=== PATIENT | female | born 1960 | race Caucasian/White ===

== ENCOUNTER 2016-04-24 11:29 | Inpatient (IN) | payer OTHER ==
[~2016-04-24] VITALS: Ht 154.9 cm; Wt 77.3 kg
[2016-04-24 12:07] LABS: EOSINOPHIL (%) 0 % (0-5); HEMATOCRIT 43.8 % (36.0-46.0); IMMATURE GRANULOCYTE (%) 0.1 % (0.0-0.7); IMMATURE GRANULOCYTE COUNT 0.1 K/uL; LYMPHOCYTE COUNT 0.5 K/uL (1.0-2.8); MCH 29.6 PG (29.0-34.0); MCHC 34.2 G/DL (30.0-36.0); MCV 86.4 FL (83-99); MEAN PLAT.VOLUME 10.5 uM^3 (9.5-12.4); MONOCYTE (%) 2.9 % (3-12); MONOCYTE COUNT 0.2 K/uL (0-0.8); NEUTROPHIL COUNT 7.3 K/uL (1.8-6.4); PLATELET COUNT 297 K/uL (156-360); RBC DIS.WIDTH-CV 12.7 % (11.8-14.6); RBC DIS.WIDTH-SD 39.5 % (39-53); RED BLOOD COUNT 5.07 M/uL (3.80-5.20)
[2016-04-24] MEDS ORDERED: WELLBUTRIN XL300 MG PO (12:11)
[2016-04-24] MEDS ORDERED: GABAPENTIN300 MG PO (12:15)
[2016-04-24] MEDS ORDERED: LEVO-T112 MCG PO (12:17)
[2016-04-24 12:18] LABS: CHLORIDE 107 mEq/L (99-109); POTASSIUM 4.5 mEq/L (3.7-5.4); SODIUM 143 mEq/L (136-147)
[2016-04-24] MEDS ORDERED: LATANOPROST2.5 ML BOTH EYES (12:18)
[2016-04-24 12:21] LABS: GLUCOSE 158 mg/dL (70-99)
[2016-04-24] MEDS ORDERED: MELATONIN10 M4 SL (12:21)
[2016-04-24 12:22] LABS: ANION GAP 14 MEQ/L (2-14)
[2016-04-24 12:23] LABS: TOTAL BILIRUBIN 0.3 mg/dL (0.0-1.0)
[2016-04-24 12:24] LABS: ALKALINE PHOSPHATASE 61 IU/L (3-129); GFR ESTIMATE (CALCULATED) > 59 mL/min/
[2016-04-24 12:25] LABS: UREA NITROGEN (BUN) 20 mg/dL (9-23)
[2016-04-24 12:28] LABS: LIPASE 18 U/L (1.0-51.0)
[2016-04-24] MEDS ORDERED: SYNTHROID112 MCG PO (15:53)
[2016-04-24] MEDS ORDERED: SENNA8.6 MG PO (15:54)
[2016-04-24] MEDS ORDERED: VICODIN 5-3001 EACH PO (15:55)
[2016-04-24 20:25] VITALS: BP 133/74
[2016-04-24 23:54] VITALS: BP 121/57
[2016-04-25 04:09] VITALS: BP 124/59
[2016-04-25 08:15] VITALS: BP 99/58
[2016-04-25 11:51] VITALS: BP 111/60
[2016-04-25 15:54] VITALS: BP 110/59
[2016-04-25 20:02] VITALS: BP 136/63
[2016-04-25 23:54] VITALS: BP 109/58
[2016-04-26 03:47] VITALS: BP 132/63
[2016-04-26 07:02] LABS: ALKALINE PHOSPHATASE 33 IU/L (3-129); ANION GAP 6 MEQ/L (2-14); CHLORIDE 105 MEQ/L (99-109); GFR ESTIMATE (CALCULATED) > 59 mL/min/; POTASSIUM 3.6 MEQ/L (3.7-5.4); SAMPLE HEMOLYSIS CHECK 0; SAMPLE ICTERIC CHECK 0; SAMPLE LIPEMIA CHECK 0; SODIUM 141 MEQ/L (136-147); TOTAL BILIRUBIN 0.5 MG/DL (0.0-1.0); UREA NITROGEN (BUN) 16 mg/dL (9-23)
[2016-04-26 07:05] LABS: GLUCOSE 96 mg/dL (70-99)
[2016-04-26 08:36] VITALS: BP 118/53
[2016-04-26 12:03] VITALS: BP 124/59
[2016-04-26 16:32] VITALS: BP 111/64
[2016-04-26 19:17] VITALS: BP 113/57
[2016-04-26 23:32] VITALS: BP 101/50
[2016-04-27 03:41] VITALS: BP 108/58
[2016-04-27 06:04] LABS: ALKALINE PHOSPHATASE 40 IU/L (3-129); ANION GAP 9 MEQ/L (2-14); CHLORIDE 105 MEQ/L (99-109); GFR ESTIMATE (CALCULATED) > 59 mL/min/; GLUCOSE 75 mg/dL (70-99); POTASSIUM 3.8 MEQ/L (3.7-5.4); SAMPLE HEMOLYSIS CHECK 2; SAMPLE ICTERIC CHECK 0; SAMPLE LIPEMIA CHECK 0; SODIUM 141 MEQ/L (136-147); TOTAL BILIRUBIN 0.6 MG/DL (0.0-1.0); UREA NITROGEN (BUN) 14 mg/dL (9-23)
[2016-04-27 06:25] LABS: HEMATOCRIT 30.6 % (36.0-46.0); MCH 30.2 PG (29.0-34.0); MCV 91.6 FL (83-99); RBC DIS.WIDTH-CV 13.4 % (11.8-14.6); RED BLOOD COUNT 3.34 M/uL (3.80-5.20); WHITE BLOOD COUNT 7.3 K/uL (4.1-10.2)
[2016-04-27 06:56] LABS: MEAN PLAT.VOLUME 11.2 uM^3 (9.5-12.4)
[2016-04-27 07:02] LABS: PLATELET COUNT 151 K/uL (156-360)
[2016-04-27 08:49] VITALS: BP 126/84
[2016-04-27 11:02] VITALS: BP 133/60
[2016-04-27 16:30] VITALS: BP 144/65
[2016-04-27 19:29] VITALS: BP 153/67
[2016-04-27 23:28] VITALS: BP 149/66
[2016-04-28 04:17] VITALS: BP 124/60
[2016-04-28 04:43] LABS: HEMATOCRIT 31.4 % (36.0-46.0); MCH 29.9 PG (29.0-34.0); MCHC 33.8 G/DL (30.0-36.0); MCV 88.7 FL (83-99); MEAN PLAT.VOLUME 10.7 uM^3 (9.5-12.4); PLATELET COUNT 172 K/uL (156-360); RBC DIS.WIDTH-CV 12.5 % (11.8-14.6); RBC DIS.WIDTH-SD 39.5 % (39-53); RED BLOOD COUNT 3.54 M/uL (3.80-5.20); WHITE BLOOD COUNT 6.1 K/uL (4.1-10.2)
[2016-04-28 04:51] LABS: CHLORIDE 106 mEq/L (99-109); POTASSIUM 3.3 mEq/L (3.7-5.4); SODIUM 142 mEq/L (136-147)
[2016-04-28 04:53] LABS: GLUCOSE 71 mg/dL (70-99)
[2016-04-28 04:55] LABS: ANION GAP 13 MEQ/L (2-14)
[2016-04-28 04:57] LABS: ALKALINE PHOSPHATASE 42 IU/L (3-129); GFR ESTIMATE (CALCULATED) > 59 mL/min/
[2016-04-28 04:58] LABS: UREA NITROGEN (BUN) 8 mg/dL (9-23)
[2016-04-28 05:04] LABS: TOTAL BILIRUBIN 0.5 mg/dL (0.0-1.0)
[2016-04-28 07:36] VITALS: BP 118/72
[2016-04-28 10:35] VITALS: BP 122/78
[2016-04-28 16:24] VITALS: BP 165/75
[2016-04-28 19:29] VITALS: BP 150/70
[2016-04-28 23:29] VITALS: BP 164/73
[2016-04-29 04:05] VITALS: BP 158/80
[2016-04-29 07:22] VITALS: BP 145/68
[2016-04-29 07:29] LABS: HEMATOCRIT 33.1 % (36.0-46.0); MCH 28.7 PG (29.0-34.0); MCHC 32.9 G/DL (30.0-36.0); MCV 87.1 FL (83-99); MEAN PLAT.VOLUME 11.4 uM^3 (9.5-12.4); PLATELET COUNT 222 K/uL (156-360); RBC DIS.WIDTH-CV 12.7 % (11.8-14.6); RBC DIS.WIDTH-SD 40.9 % (39-53); WHITE BLOOD COUNT 5.6 K/uL (4.1-10.2)
[2016-04-29 07:54] LABS: ALKALINE PHOSPHATASE 37 IU/L (3-129); ANION GAP 13 MEQ/L (2-14); CHLORIDE 103 MEQ/L (99-109); GFR ESTIMATE (CALCULATED) > 59 mL/min/; GLUCOSE 81 mg/dL (70-99); POTASSIUM 3.2 MEQ/L (3.7-5.4); SAMPLE HEMOLYSIS CHECK 0; SAMPLE ICTERIC CHECK 0; SAMPLE LIPEMIA CHECK 0; SODIUM 139 MEQ/L (136-147); TOTAL BILIRUBIN 0.5 MG/DL (0.0-1.0); UREA NITROGEN (BUN) 4 mg/dL (9-23)
[2016-04-29 11:14] VITALS: BP 162/74
[2016-04-29 15:03] VITALS: BP 157/70
[2016-04-29 19:23] VITALS: BP 175/84
[2016-04-29 23:27] VITALS: BP 152/71
[2016-04-30 05:29] VITALS: BP 170/77
[2016-04-30 05:40] LABS: HEMATOCRIT 34.6 % (36.0-46.0); MCH 30.8 PG (29.0-34.0); MCHC 35.5 G/DL (30.0-36.0); MCV 86.5 FL (83-99); MEAN PLAT.VOLUME 11.4 uM^3 (9.5-12.4); PLATELET COUNT 238 K/uL (156-360); RBC DIS.WIDTH-CV 12.7 % (11.8-14.6); RBC DIS.WIDTH-SD 40.1 % (39-53); WHITE BLOOD COUNT 5.9 K/uL (4.1-10.2)
[2016-04-30 06:05] LABS: ALKALINE PHOSPHATASE 44 IU/L (3-129); ANION GAP 20 MEQ/L (2-14); CHLORIDE 99 MEQ/L (99-109); GFR ESTIMATE (CALCULATED) > 59 mL/min/; GLUCOSE 82 mg/dL (70-99); POTASSIUM 3.7 MEQ/L (3.7-5.4); SAMPLE HEMOLYSIS CHECK 0; SAMPLE ICTERIC CHECK 0; SAMPLE LIPEMIA CHECK 0; SODIUM 140 MEQ/L (136-147); TOTAL BILIRUBIN 0.5 MG/DL (0.0-1.0); UREA NITROGEN (BUN) 4 mg/dL (9-23)
[2016-04-30 07:40] VITALS: BP 156/74
[2016-04-30 16:06] VITALS: BP 176/82
[2016-04-30 23:38] VITALS: BP 139/57
[2016-05-01 05:04] LABS: HEMATOCRIT 37.4 % (36.0-46.0); MCH 29.8 PG (29.0-34.0); MCV 85.2 FL (83-99); MEAN PLAT.VOLUME 10.8 uM^3 (9.5-12.4); PLATELET COUNT 289 K/uL (156-360); RBC DIS.WIDTH-SD 39.6 % (39-53); RED BLOOD COUNT 4.39 M/uL (3.80-5.20)
[2016-05-01 05:05] LABS: WHITE BLOOD COUNT 9.9 K/uL (4.1-10.2)
[2016-05-01 08:28] VITALS: BP 146/67
[2016-05-01 15:56] VITALS: BP 182/93
[2016-05-01 21:31] VITALS: BP 162/82
[2016-05-01 23:24] VITALS: BP 181/86
[2016-05-02 01:37] VITALS: BP 162/73
[2016-05-02 07:25] VITALS: BP 158/76
[2016-05-02 08:45] LABS: C DIFF TOXIN NEGATIVE (NEGATIVE)
[2016-05-02 08:47] LABS: PROBE CHECK PASS; SPECIMEN PROCESSING CONTROL PASS
[2016-05-02 15:14] VITALS: BP 135/74
[2016-05-03 00:23] VITALS: BP 138/77
[2016-05-03 08:13] VITALS: BP 155/80
[2016-05-03] MEDS ORDERED: AMLODIPINE BESYL5 MG PO (11:30)
== END 2016-05-03 14:03 | disposition home or self-care (01) | DRG 329 ==
LOC: EME 11:29 → SDC 16:21 → EME 16:21 → 3EAST 18:21 → 2SOUTH 18:21 → 3EAST 20:09
PROVIDERS: Emergency Medicine; Surgery
DX: K56.5 Intestinal adhesions [bands] with obstruction (postinfection) (principal); K65.9 Peritonitis, unspecified; K56.0 Paralytic ileus; K55.029 Acute infarction of small intestine, extent unspecified; E03.9 Hypothyroidism, unspecified; I10 Essential (primary) hypertension; H40.9 Unspecified glaucoma; K31.84 Gastroparesis
CPT/HCPCS: 74000; 74177; 80053; 81003; 83690; 85025; 85027; 87493; 88307; 94799; 99281; 99285; J1100; J1170; J1650; J1815; J1885; J2060; J2250; J2405; J2543; J2765; J3010; J3480; J7030; J7050; J7120